=== PATIENT | female | born 1995 | race Caucasian/White ===

== ENCOUNTER 2021-01-12 17:05 | Emergency (ER) | payer OTHER ==
[~2021-01-12 17:05] MED LIST: AMOXICILLIN500 MG PO; BICILLIN L1.2 MU/SYR IM; BL IBUPROFEN200 MG PO; CIPROFLOXACN500 MG PO; DARVOCET N-100100 - OR; FLEXERIL PO; FLEXERIL5 M1 PO; IBUPROFEN800 MG PO; LEVOTHYROXIN25 MC1 PO; LORTAB5 OR; Levaquin PO; NAPROSYN250 MG OR; NAPROSYN500 MG PO; NO MEDICATIONS; PENICILLN VK500 M1 OR; PRILOSEC20 MG PO; PRILOSEC40 MG PO; SYNTHROID25 MCG PO; TYLENOL325 MG PO; ZITHROMAX250 MG PO
[2021-01-12] MEDS ORDERED: NIFEDIPINE60 MG PO (18:02)
[2021-01-12 18:28] LABS: HEMATOCRIT 43.4 % (37.0-47.0); HEMOGLOBIN 14.5 g/dl (12.0-16.0); IMMATURE GRANULOCYTES 0.2 % (0.0-5.0); MEAN CELL VOLUME 100.2 fL CALC (80.0-100.0); MEAN CORPUSCULAR HGB 33.5 pG CALC (26.0-32.0); MEAN CORPUSCULAR HGB CONC 33.4 g/dL CAL (32.0-36.0); NEUT# 8.41 thou/uL (2.00-7.15); RED BLOOD COUNT 4.33 mill/uL (4.20-5.60); RED CELL DISTRI WIDTH 12.4 % (11.5-15.5)
[2021-01-12 18:31] LABS: URINE BILIRUBIN - DIPSTICK NEGATIVE (NEGATIVE); URINE BLOOD DIPSTICK TRACE-INTACT (NEGATIVE); URINE COLOR YELLOW; URINE GLUCOSE - DIPSTICK NEGATIVE (NEGATIVE); URINE KETONE NEGATIVE (NEGATIVE); URINE LEUK ESTERASE TRACE (NEGATIVE); URINE PROTEIN - DIPSTICK NEGATIVE (NEG-TRACE); URINE UROBILINOGEN - DIPSTICK 0.2 E.U./dL (0.2)
[2021-01-12 18:32] LABS: URINE NITRITE - DIPSTICK NEGATIVE (Negative)
[2021-01-12 18:35] LABS: ALBUMIN 4.4 g/dL (3.2-5.0); ALKALINE PHOSPHATASE 68 u/l (38-126); ANION GAP 10 (6-22 (CALC)); BUN 6 mg/dL (7-17); BUN/CREATININE RATIO 10 (12-20 (CALC)); CARBON DIOXIDE 29 mmol/l (22-30); CHLORIDE 101 mmol/l (95-108); CREATININE 0.6 mg/dL (0.5-1.0); GFR > 60 ML/MIN (>=60 (CALC)); GFR FOR AFR.AMER. > 60 ML/MIN (>=60 (CALC)); LIPASE 284 u/l (23-300); POTASSIUM 3.7 mmol/l (3.5-5.1); SGOT/AST 20 u/l (14-36); SODIUM 136 mmol/l (137-146)
[2021-01-12 18:41] LABS: BILIRUBIN, TOTAL 0.2 mg/dL (0.0-1.4)
[2021-01-12 20:00] VITALS: BP 134/93
== END 2021-01-12 20:04 | disposition home or self-care (01) | DRG 948 ==
LOC: ED 17:05
PROVIDERS: Family Medicine
DX: R52 Pain, unspecified (principal); I10 Essential (primary) hypertension; Z20.822 Contact with and (suspected) exposure to COVID-19